=== PATIENT | female | born 1980 | race Caucasian/White ===

== ENCOUNTER → 2019-05-29 | Outpatient (CLI) | payer BC | LOC: RAD 11:19 | DX: Z12.31 Encounter for screening mammogram for malignant neoplasm of breast (principal) ==

== ENCOUNTER → 2019-06-05 | Outpatient (CLI) | payer BC | LOC: ULTRA 12:40 | DX: R92.2 Inconclusive mammogram (principal) ==

== ENCOUNTER → 2020-07-02 | Outpatient (CLI) | payer BC | LOC: RAD 07:32 | DX: Z12.31 Encounter for screening mammogram for malignant neoplasm of breast (principal) ==